=== PATIENT | male | born 2000 | race Caucasian/White ===

== ENCOUNTER 2023-09-26 11:33 | Emergency (ER) | payer OTHER, SELFPAY ==
[2023-09-26 11:45] VITALS: BP 140/92; PULSE 78; RESP 18; TEMP 36.9; O2SAT 97
--- NOTE | 2023-09-26 11:55 | XR_ITS ---
FINAL REPORT CLINICAL HISTORY: POSSIBLE FB, SWELLING FINDINGS: Left humerus Three views were obtained. There is no acute fracture or dislocation. The joint spaces appear normal. There is a 2 mm radiopaque foreign body in the soft tissues in the anterior distal left upper arm. IMPRESSION: Foreign body as above. Reviewed, Interpreted and Dictated by Abelardo Francis MD Transcribed by Kristen Elliott Authenticated and [facility]
--- NOTE | 2023-09-26 11:55 | XR_ITS ---
FINAL REPORT CLINICAL HISTORY: SWELLING FINDINGS: Left elbow Three views were obtained. There is no acute fracture or dislocation. The joint spaces appear normal. There is a 2 mm radiopaque foreign body in the soft tissues in the anterior distal left upper arm. IMPRESSION: Foreign body as above. Reviewed, Interpreted and Dictated by Abelardo Francis MD Transcribed by Kristen Elliott Authenticated and [facility]
--- NOTE | 2023-09-26 12:09 | EXP.UTC ---
Discharge Plan Disposition Patient Disposition: Home, Self-Care Condition: Good Prescriptions Prescriptions: New cephalexin [cephalexin] 500 mg tablet 500 mg PO BID 7 Days Qty: 14 0RF Referrals Follow up/Referrals: Provider,Referral, MD [Primary Care Provider] - See instructions Activity Restrictions/Add. Instructions Additional Instructions/Restrictions: see Dr Collier 09/27/23 @ 11:15 antibiotics as ordered monitor for s/s infection Clinical Impressions Clinical Impression: Foreign body, Foreign body (FB) in soft tissue Instructions Patient Instructions: DI for Removal of Foreign Body From Skin Discharge ED Provider: Teodora ([facility])Berny [facility] HPI General Stated complaint: AO [id number] FO in left arm, home accident Mode of Arrival: Ambulatory Source of Information: Patient Limitations: No Limitations Time Seen by Provider: 09/26/23 12:09 Description of Symptoms (Recalled from Triage Doc. by RN): Pt stated that 1 week he was working and metal shard went into upper left arm. He stated that it has been swollen and a little discomfort. It is bruised with slight swelling. HEENT Symptoms (Recalled from RN notes): Yes Resp Symptoms (Recalled from RN notes): No Skin Symptoms (Recalled from RN notes): No MS Symptoms (Recalled from RN notes): No Functional Status (Recalled from RN notes): n/a History of Present Illness Provider Complaint: 23 yr old male presents with swelling in left arm.Pt stated that 1 week he was working and metal shard went into upper left arm. He stated that it has been swollen and a little discomfort. It is bruised with slight swelling. Related Data Previous Rx's Medication Instructions Recorded cephalexin 500 mg tablet 500 mg PO BID 7 days #14 tabs 09/26/23 Allergies Allergy/AdvReac Type Severity Reaction Status Date / Time No Known Allergies Allergy Verified 09/26/23 12:07 Worker's Comp Is this a Worker's Comp case?: No [facility] Disclaimer: The information contained in this section may have been updated after the patient was seen, as this information can be updated by other users. 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) Smoking Status: Unknown if ever smoked alcohol intake: never current occupational status: employed Travel in the last 8 weeks: None ROS Obtained: Yes All systems reviewed & no additional complaints except as documented Constitutional Constitutional: Reports system reviewed and no additional complaints, except as documented Eyes Eyes: Reports system reviewed and no additional complaints, except as documented ENT Ears, Nose, Mouth, and Throat: Reports system reviewed and no additional complaints, except as documented Cardiovascular Cardiovascular: Reports system reviewed and no additional complaints, except as documented Respiratory Respiratory: Reports system reviewed and no additional complaints, except as documented Gastrointestinal Gastrointestingal: Reports system reviewed and no additional complaints, except as documented Musculoskeletal Musculoskeletal: Reports system reviewed and no additional complaints, except as documented and Reports as per HPI Integumentary/Breasts Skin/Breast: Reports system reviewed and no additional complaints, except as documented, Reports as per HPI and Reports other (fb) Neurologic Neurologic: Reports system reviewed and no additional complaints, except as documented Endocrine Endocrine: Reports system reviewed and no additional complaints, except as documented Hematologic/Lymphatic Henatologic/Lymphatic: Reports system reviewed and no additional complaints, except as documented Physical Exam General General appearance: alert and in no apparent distress Head Head exam: atraumatic Eye Eye exam: Present normal appearance and PERRL ENT ENT exam: Present normal exam, normal oropharynx, mucous membranes moist and TM's normal bilaterally Respiratory Respiratory exam: Present norm
--- NOTE | 2023-09-26 12:16 | US_ITS ---
FINAL REPORT CLINICAL HISTORY: left upper arm bruising FINDINGS: Limited sonographic images of the left upper arm were obtained. There is a 3 mm echogenic focus in the subcutaneous soft tissues in the anterior margin of the muscle consistent with known foreign body. IMPRESSION: Foreign body as above. Reviewed, Interpreted and Dictated by Abelardo Francis MD Transcribed by Kristen Elliott Authenticated and . [facility]
[2023-09-26 13:13] VITALS: BP 140/92; PULSE 78; RESP 18; TEMP 36.9; O2SAT 97
== END 2023-09-26 13:13 | disposition home or self-care (01) ==
PROVIDERS: Emergency Provider Nurse Practitioner Family
DX: S40.852A Superficial foreign body of left upper arm, initial encounter (principal); R22.32 Localized swelling, mass and lump, left upper limb; Z23 Encounter for immunization; W45.8XXA Other foreign body or object entering through skin, initial encounter
CPT/HCPCS: 73060; 73080; 76882; 90715; 96372; 99204; 99212; G0463